=== PATIENT | female | born 1995 | race Caucasian/White ===

== ENCOUNTER 2021-05-08 06:28 | Emergency (ER) | payer BC, SELFPAY ==
--- NOTE | ~2021-05-08 | XR_ITS ---
EXAMINATION: XR chest 2V EXAM DATE: 05/08/2021 06:57 INDICATION: SOB/pain on inspiration TO LT SIDE, Pain Since 05/06. TECHNIQUE: Frontal and lateral projections of the chest obtained and reviewed. There is no prior nirav dy for comparison. FINDINGS: There is slightly increased density adjacent to the left lung base, possible developing pne umonia. Please clinically correlate. The lungs are otherwise clear. There are no pleural effusions. The cardiomediastinal silhouette is within normal limits. There is no pneumothorax suspected. The bones and soft tissues are unremarkable. IMPRESSION: Possible developing left basilar pneumonia. Reviewed, dictated and finalized at location A.
[2021-05-08 06:36] VITALS: BP 124/76; PULSE 88; RESP 27; TEMP 36.7; O2SAT 100
[2021-05-08 06:44] VITALS: O2SAT 100
--- NOTE | 2021-05-08 06:47 | ECG_ITS ---
Measurements Intervals [place] Rate: 71 P: 62 HI: 145 QRS: 48 QRSD: 96 T: 23 QT: 381 QTc: 415 Interpretive Statements SINUS RHYTHM MINIMAL Q WAVES- LATERAL LEADS BASELINE ARTIFACT- I, II, III, AVR, AVL, AVF, V1-V6 BORDERLINE ECG Electronically Signed On 05-08-2021 7:12:50 CDT by Almas Masters D.O.
--- NOTE | 2021-05-08 07:15 | PC.NURSE ---
report received from eliza mcpherson. pt resting quietly on stretcher. no distress noted. pt using laptop.
[2021-05-08 07:20] LABS: Basophils Percent Auto 0.4 % (0.2-1.2); Eosinophils Absolute Auto 0.2 K/mm3 (0-0.3); Eosinophils Percent Auto 1.9 % (0-4.4); Hematocrit 36.5 % (37.0-47.0); Hemoglobin 11.9 g/dL (12.0-15.0); Immature Granulocyte Absolute 0.02 K/mm3 (0.00-0.031); Immature Granulocyte Percent A 0.3 % (0-0.5); Lymphocytes Absolute Auto 1.39 K/mm3 (0.9-3.2); Lymphocytes Percent Auto 17.5 % (18.3-44.2); Mean Corpuscular HGB Conc 32.6 g/dl (32-36); Mean Corpuscular Hemoglobin 25.8 pg (26-34); Mean Corpuscular Volume 79.2 fl (80-100); Mean Platelet Volume 9.6 fl (7.4-10.4); Monocytes Absolute Auto 0.6 K/mm3 (0.1-0.6); Monocytes Percent Auto 7.4 % (2.6-8.5); Neutrophils Absolute Auto 5.8 K/mm3 (1.3-6.7); Neutrophils Percent Auto 72.5 % (45.5-73.1); Platelet Count Result 267 k/mm3 (150-375); Red Blood Count 4.61 M/mm3 (4.2-5.4); White Blood Count 7.9 K/mm3 (4.5-10.0)
[2021-05-08 07:35] LABS: Anion Gap 8 mmol/L (8-16); Blood Urea Nitrogen 17 mg/dL (7-17); Calcium 9.5 mg/dL (8.4-10.2); Carbon Dioxide 26 mmol/L (22-30); Chloride 107 mmol/L (98-107); Estimated CRCL calculation 97 ml/min; Estimated Glomerular Filt Rate > 60; Glucose 91 mg/dL (65-110); Potassium 4.3 mmol/L (3.4-5.0); Sodium 141 mmol/L (137-145)
[2021-05-08 07:54] LABS: Alanine Aminotransferase 17 U/L (4-35); Albumin Level 4.2 g/dL (3.5-5.1); Alkaline Phosphatase 53 U/L (38-126); Aspartate Amino Transferase 18 U/L (14-36); Bilirubin,Total 0.3 mg/dL (0.2-1.3)
--- NOTE | 2021-05-08 08:04 | ED.BACK ---
HPI - Back Pain/Injury General Chief Complaint: Shortness of Breath/Dyspnea Stated Complaint: sharp pain with inspiration on left side Time Seen by Provider: 05/08/21 07:30 Source: patient History of Present Illness HPI Narrative: 26 years old white female, healthy otherwise, does not take medicine presents with left shoulder blade pain started 1 day after playing volleyball. Worse with breathing, better at rest. Patient denies any fever, chills, nausea, vomiting, shortness of breath, chest pain. Patient also denies radiation of pain which is sharp stabbing. Related Data Allergies Allergy/AdvReac Type Severity Reaction Status Date / Time No Known Allergies Allergy Verified 05/08/21 06:48 Review of Systems Review of Systems: CONSTITUTIONAL: Denies fever, chills, or sweats. EYES: Denies visual changes, redness, or discharge. ENT: Denies rhinorrhea, congestion, sore throat, or otalgia. CARDIOVASCULAR: Denies chest pain, palpitations, or edema. RESPIRATORY: Denies cough or dyspnea. GASTROINTESTINAL: Denies abdominal pain, nausea, vomiting, or diarrhea. GENITOURINARY: Denies dysuria or hematuria. SKIN: Denies rash or itching. MUSCULOSKELETAL: Denies back pain, joint pain, or myalgia. NEUROLOGIC: Denies headache, numbness, or weakness. PSYCHIATRIC: Denies anxiety or depression. Exam Narrative: General appearance: Well-developed, well-nourished Skin: Normal color Head: Normocephalic, nontraumatic Eyes: Clear conjunctiva ENT: Oropharynx normal, ears normal, nose normal Neck: Supple, nontender Chest and respiratory: Airway patent, no respiratory distress, no accessory muscle use Heart: Regular rate/rhythm Abdomen: Soft, nontender, no organomegaly, quiet bowel sounds Vascular: Normal peripheral pulses, normal capillary refill. Musculoskeletal: Mild tenderness left upper back, no bruises, no swelling, no rash, that tenderness gets worse with left upper extremity movement. Neurologic: Alert and oriented ?3, [employer] is normal as tested, no gross motor deficit Course Course Emergency Course: Stable Vital Signs Vital signs: Vital Signs Temperature 36.7 C 05/08/21 06:36 Pulse Rate 88 05/08/21 06:36 Respiratory Rate 27 H 05/08/21 06:36 Blood Pressure 124/76 05/08/21 06:36 Pulse Oximetry 100 05/08/21 06:36 Temperature 36.7 C 05/08/21 06:36 Pulse Rate 66 05/08/21 08:56 Respiratory Rate 19 05/08/21 08:56 Blood Pressure 124/76 05/08/21 06:36 Pulse Oximetry 100 05/08/21 08:56 MDM - Back Pain/Injury MDM Narrative Medical decision making narrative: Musculoskeletal pain is my concern Lab Data Result diagrams: 05/08/21 07:07 05/08/21 07:07 Labs: Lab Results 05/08/21 05/08/21 05/08/21 Range/Units 07:07 07:07 07:07 WBC 7.9 (4.5-10.0) K/mm3 RBC 4.61 (4.2-5.4) M/mm3 Hgb 11.9 L (12.0-15.0) g/dL Hct 36.5 L (37.0-47.0) % MCV 79.2 L (80-100) fl MCH 25.8 L (26-34) pg MCHC 32.6 (32-36) g/dl RDW 13.0 (11.5-14.5) % Plt Count 267 (150-375) k/mm3 MPV 9.6 (7.4-10.4) fl Immature Gran % (Auto) 0.3 (0-0.5) % Neut % (Auto) 72.5 (45.5-73.1) % Lymph % (Auto) 17.5 L (18.3-44.2) % Darke % (Auto) 7.4 (2.6-8.5) % Eos % (Auto) 1.9 (0-4.4) % Baso % (Auto) 0.4 (0.2-1.2) % Lymph # (Auto) 1.39 (0.9-3.2) K/mm3 Darke # (Auto) 0.6 (0.1-0.6) K/mm3 Eos # (Auto) 0.2 (0-0.3) K/mm3 Baso # (Auto) 0.0 (0.0-0.1) K/mm3 Abs Immat Gran (auto) 0.02 (0.00-0.031) K/mm3 Absolute Neuts (auto) 5.8 (1.3-6.7) K/mm3 Absolute Nucleated RBC 0.0 (0.0-0.012) K/mm3 Nucleated RBC % 0.0 (0.0-0.2) % D-Dimer 1.99 H (<0.48)
[2021-05-08 08:54] VITALS: PULSE 65
[2021-05-08 08:56] VITALS: PULSE 66; RESP 19; O2SAT 100
[2021-05-08 09:18] LABS: D Dimer 1.99 ug/mL (<0.48)
[2021-05-08 09:37] VITALS: BP 119/76; PULSE 76; RESP 16; O2SAT 100
== END 2021-05-08 09:41 | disposition home or self-care (01) ==
PROVIDERS: Emergency Medicine; Emergency Provider Emergency Medicine
DX: M54.6 Pain in thoracic spine (principal); R94.31 Abnormal electrocardiogram [ECG] [EKG]
CPT/HCPCS: 36415; 71046; 80048; 80076; 85025; 85380; 93005; 99284